=== PATIENT | female | born 1975 | race Caucasian/White ===

== ENCOUNTER → 2016-07-14 | Outpatient (CLI) | payer MEDICARE ==
--- NOTE | 2016-07-17 08:27 | REP ---
MRA SPINE WITHOUT CONTRAST: HISTORY: Occipital neuralgia. A 2D phase contrast CSF flow study was performed with a velocity encoding of 10 cm/s. CSF flow is present in the prepontine and medullary cisterns, aqueduct of Sylvius and outlet foramina. CSF flow is present in the subarachnoid space posterior to the cerebellar tonsils and anterior and posterior subarachnoid space at the cervicomedullary junction. The CSF flow appears normal. IMPRESSION: CSF flow study as described above. Signed by Ramiro Garcia MD 07/17/2016 08:31 A
== END ==
LOC: M RAD 15:37
PROVIDERS: ATTEND Neurological Surgery
DX: M54.81 Occipital neuralgia (principal); G93.5 Compression of brain

== ENCOUNTER → 2017-02-05 | Outpatient (REF) | payer MEDICARE ==
[2017-02-05 17:09] LABS: BASO % 0.9 % (0.0-1.0); EOS % 0.9 % (0.0-3.0); LARGE UNSTAINED CELL # 0.1 K/mm3 (0.0-0.4); LARGE UNSTAINED CELL % 2.1 % (0.0-4.0); LYMPH # 1.7 K/mm3 (1.5-4.5); LYMPH % 31.2 % (24.0-44.0); MEAN CORPUSCULAR HEMOGLOBIN 30.5 pg (27.0-33.0); MEAN CORPUSCULAR HGB CONC 32.5 g/dl (32.0-36.5); MEAN CORPUSCULAR VOLUME 93.8 fl (80.0-96.0); MONO # 0.3 K/mm3 (0.0-0.8); MONO % 4.8 % (0.0-5.0); NEUTROPHILS # 3.1 K/mm3 (1.8-7.7); NEUTROPHILS % 60.1 % (36.0-66.0); PLATELET COUNT, AUTOMATED 313 k/mm3 (150-450); RED CELL DISTRIBUTION WIDTH 12.7 % (11.5-14.5); WHITE BLOOD COUNT 5.2 K/mm3 (4.0-10.0)
[2017-02-05 17:10] LABS: ALBUMIN 3.9 GM/DL (3.2-5.2); ALBUMIN/GLOBULIN RATIO 1.26 (1.00-1.93); ALKALINE PHOSPHATASE 79 U/L (45-117); ALT/SGPT 28 U/L (12-78); ANION GAP 10 MEQ/L (8-16); AST/SGOT 17 U/L (15-37); BILIRUBIN,TOTAL 0.3 MG/DL (0.2-1.0); BLOOD UREA NITROGEN 17 MG/DL (7-18); CALCIUM LEVEL 8.3 MG/DL (8.5-10.1); CARBON DIOXIDE LEVEL 19 MEQ/L (21-32); CHLORIDE LEVEL 112 MEQ/L (98-107); CREATININE FOR GFR 0.79 MG/DL (0.55-1.02); GLOMERULAR FILTRATION RATE > 60.0 (>58); GLUCOSE, FASTING 105 MG/DL (70-105); POTASSIUM SERUM 4.1 MEQ/L (3.5-5.1); SODIUM LEVEL 141 MEQ/L (136-145)
[2017-02-05 20:54] LABS: ERYTHROCYTE SEDIMENTATION RATE 10 mm/hr (0-20)
== END ==
LOC: M LABNEURO 15:10
PROVIDERS: ATTEND Psychiatry & Neurology Neurology
DX: G89.29 Other chronic pain (principal); M54.5 Low back pain; M54.2 Cervicalgia

== ENCOUNTER 2017-06-04 20:00 | Emergency (ER) | payer MEDICARE ==
[~2017-06-04] VITALS: Ht 172.7 cm; Wt 75.0 kg
[2017-06-04] MEDS ORDERED: PREG50CA PO (20:10)
[2017-06-04] MEDS ORDERED: SUMA6INJ16 (20:10)
[2017-06-04] MEDS ORDERED: DULO1CAP3 (20:10)
[2017-06-04] MEDS ORDERED: SERT-138 (20:10)
[2017-06-04] MEDS ORDERED: PROP60CA (20:10)
[2017-06-04] MEDS ORDERED: MORPHINE 4 MG/ML 1ML SYRINGE IV ONE ×2 (20:45→21:00)
[2017-06-04 21:18] LABS: BASO # 0.1 10^3/uL (0.0-0.2); BASO % 0.8 % (0.0-1.0); EOS # 0.1 10^3/uL (0.0-0.50); EOS % 1.5 % (0.0-3.0); IMMATURE GRANULOCYTE % 0.4 % (0-0); LYMPH # 2.1 10^3/uL (1.5-4.5); LYMPH % 21.8 % (24.0-44.0); MEAN CORPUSCULAR HEMOGLOBIN 30.7 pg (27.0-33.0); MEAN CORPUSCULAR HGB CONC 32.5 g/dl (32.0-36.5); MEAN CORPUSCULAR VOLUME 94.3 fl (80.0-96.0); MONO # 0.7 10^3/uL (0.0-0.8); MONO % 7.5 % (0.0-5.0); NEUTROPHILS # 6.5 10^3/uL (1.8-7.7); PLATELET COUNT, AUTOMATED 376 10^3/uL (150-450); RED CELL DISTRIBUTION WIDTH 12.8 % (11.5-14.5); WHITE BLOOD COUNT 9.5 10^3/uL (4.0-10.0)
[2017-06-04 21:35] LABS: INR 0.95
[2017-06-04 21:37] LABS: ANION GAP 6 MEQ/L (8-16); BLOOD UREA NITROGEN 24 MG/DL (7-18); CALCIUM LEVEL 8.9 MG/DL (8.5-10.1); CARBON DIOXIDE LEVEL 27 MEQ/L (21-32); CHLORIDE LEVEL 103 MEQ/L (98-107); GLOMERULAR FILTRATION RATE > 60.0 (>58); GLUCOSE, FASTING 89 MG/DL (70-105); SODIUM LEVEL 136 MEQ/L (136-145)
[2017-06-04] MEDS ORDERED: PROPOFOL 200 MG/20 ML VIAL As Ordered ONE (22:45)
[2017-06-04 23:12] VITALS: O2SAT 98
[2017-06-05] MEDS ORDERED: NORCO 5/325MG TABLET (BULK FOR ED) PO ONE (00:15)
[2017-06-05] MEDS ORDERED: MORPHINE 4 MG/ML 1ML SYRINGE IV ONE (00:15)
[2017-06-05] MEDS ORDERED: PROPOFOL 200 MG/20 ML VIAL IV ONE (00:45)
[2017-06-05 03:03] VITALS: BP 122/75
--- NOTE | 2017-06-05 07:38 | REP ---
Right tibia-fibula four views: There is a fracture at the base of the medial malleolus and medial subluxation of the distal tibia and a fracture of the distal fibula. Signed by Tl Zepeda MD 06/05/2017 07:30 A
--- NOTE | 2017-06-05 07:39 | REP ---
Right ankle five views: There is a trimalleolar fracture with anteromedial subluxation of the distal tibia. Signed by Tl Zepeda MD 06/05/2017 07:31 A
--- NOTE | 2017-06-05 07:41 | REP ---
Chest, single AP view, the patient supine: There are no comparisons. The lung dempsey are clear. Cardiac size is normal. The yamilet, mediastinum, and bony thorax are unremarkable. Impression: Negative supine AP chest. Signed by Tl Zepeda MD 06/05/2017 07:32 A
--- NOTE | 2017-06-05 07:44 | REP ---
Right ankle portable study to views post reduction: The trimalleolar fracture has been satisfactorily reduced except that there is diastases of the distal fibular fracture on the lateral view. The subluxation of the distal tibia has been satisfactorily reduced. Signed by Tl Zepeda MD 06/05/2017 07:35 A
== END 2017-06-05 01:36 | disposition home or self-care (01) ==
LOC: M ED 20:00
DX: S82.851A Displaced trimalleolar fracture of right lower leg, initial encounter for closed fracture (principal); X50.1XXA Overexertion from prolonged static or awkward postures, initial encounter; Y92.410 Unspecified street and highway as the place of occurrence of the external cause; Y93.89 Activity, other specified; Y99.9 Unspecified external cause status; F32.9 Major depressive disorder, single episode, unspecified; G43.909 Migraine, unspecified, not intractable, without status migrainosus; Z79.899 Other long term (current) drug therapy; Z88.1 Allergy status to other antibiotic agents; Z88.5 Allergy status to narcotic agent; Z91.018 Allergy to other foods

== ENCOUNTER → 2017-10-23 | Outpatient (CLI) | payer MEDICARE, MEDICAID | LOC: M RAD 08:11 | DX: M51.36 Other intervertebral disc degeneration, lumbar region (principal) | CPT/HCPCS: 72131 ==

== ENCOUNTER 2017-12-22 19:36 | Emergency (ER) | payer BC, MEDICARE ==
[2017-12-22] MEDS: KETOROLAC 30 MG/ML VIAL (J1885) IV (21:15)
[2017-12-22] MEDS: ONDANSETRON 4MG/2ML VIAL (J2405) IV (21:15)
[2017-12-22] MEDS: NS 1,000 ML IV (21:15)
[2017-12-22 21:37] LABS: KETONE, URINE AUTO RFX NEGATIVE (NEGATIVE); LEUKOCYTE ESTERASE UR AUTO RFX NEGATIVE (NEGATIVE); MUCUS, URINE RFX SMALL (NEGATIVE); NITRITE, URINE AUTO RFX NEGATIVE (NEGATIVE); RBC, URINE AUTO RFX 12 /HPF (0-3); SPECIFIC GRAVITY UR AUTO RFX 1.019 (1.002-1.035); SQUAM EPITHELIAL CELL UR AURFX 1 /HPF (0-6); WBC, URINE AUTO RFX 1 /HPF (0-3)
[2017-12-22 21:40] LABS: BASO # 0.1 10^3/uL (0.0-0.2); BASO % 0.7 % (0.0-1.0); EOS # 0.1 10^3/uL (0.0-0.50); HEMATOCRIT 37.2 % (36.0-47.0); HEMOGLOBIN 12.1 g/dl (12.0-15.5); IMMATURE GRANULOCYTE % 0.3 % (0-3.0); LYMPH # 2.6 10^3/uL (1.5-4.5); LYMPH % 35.5 % (24.0-44.0); MEAN CORPUSCULAR HEMOGLOBIN 27.2 pg (27.0-33.0); MEAN CORPUSCULAR HGB CONC 32.5 g/dl (32.0-36.5); MEAN CORPUSCULAR VOLUME 83.6 fl (80.0-96.0); MONO # 0.5 10^3/uL (0.0-0.8); MONO % 7.5 % (0.0-5.0); PLATELET COUNT, AUTOMATED 379 10^3/uL (150-450); RED BLOOD COUNT 4.45 10^6/uL (4.00-5.40); RED CELL DISTRIBUTION WIDTH 13.6 % (11.5-14.5); WHITE BLOOD COUNT 7.2 10^3/uL (4.0-10.0)
[2017-12-22 22:10] LABS: ALBUMIN/GLOBULIN RATIO 1.11 (1.00-1.93); ALKALINE PHOSPHATASE 108 U/L (45-117); ALT/SGPT 21 U/L (12-78); AMYLASE 25 U/L (25-115); ANION GAP 8 MEQ/L (8-16); AST/SGOT 11 U/L (7-37); BILIRUBIN,DIRECT 0.1 MG/DL (0.0-0.2); BILIRUBIN,TOTAL 0.4 MG/DL (0.2-1.0); BLOOD UREA NITROGEN 18 MG/DL (7-18); CALCIUM LEVEL 8.6 MG/DL (8.5-10.1); CARBON DIOXIDE LEVEL 26 MEQ/L (21-32); CHLORIDE LEVEL 107 MEQ/L (98-107); CREATININE FOR GFR 0.81 MG/DL (0.55-1.30); GLOMERULAR FILTRATION RATE > 60.0 (>58); GLUCOSE, FASTING 84 MG/DL (70-100); LIPASE 169 U/L (73-393); POTASSIUM SERUM 3.7 MEQ/L (3.5-5.1); SODIUM LEVEL 141 MEQ/L (136-145); TOTAL PROTEIN 7.6 GM/DL (6.4-8.2)
[2017-12-22] MEDS ORDERED: ISOVUE-370 76% 100ML VIAL (Q9967) As Ordered (22:17)
== END 2017-12-22 23:55 | disposition home or self-care (01) ==
LOC: M ED 19:36
DX: R10.11 Right upper quadrant pain (principal); R10.31 Right lower quadrant pain; R11.0 Nausea; K42.9 Umbilical hernia without obstruction or gangrene; K44.9 Diaphragmatic hernia without obstruction or gangrene; Z79.899 Other long term (current) drug therapy; Z88.1 Allergy status to other antibiotic agents; Z88.5 Allergy status to narcotic agent; Z91.018 Allergy to other foods
CPT/HCPCS: J2405

== ENCOUNTER → 2019-04-15 | Outpatient (REF) | payer BC, MEDICARE ==
[~2019-04-15] MED LIST: DULO1CAP6; IBUP80TA PO; OMEP-358 PO; PREG50CA PO; PROP60CA; SERT-138; SUMA6INJ16; SUMA6KIT SC; ZOFR4TAB14 PO
[2019-04-15 18:15] LABS: AMORPHOUS SEDIMENT SMALL (NEGATIVE); APPEARANCE, URINE HAZY (CLEAR); BACTERIA, URINE AUTO NEGATIVE (NEGATIVE); BILIRUBIN, URINE AUTO NEGATIVE (NEGATIVE); BLOOD, URINE BLOOD 2+ (NEGATIVE); COLOR, URINE YELLOW (YELLOW); GLUCOSE, URINE (UA) AUTO NEGATIVE (NEGATIVE); KETONE, URINE AUTO NEGATIVE (NEGATIVE); LEUKOCYTE ESTERASE, URINE AUTO NEGATIVE (NEGATIVE); NITRITE, URINE AUTO NEGATIVE (NEGATIVE); PROTEIN, URINE AUTO NEGATIVE (NEGATIVE); RBC, URINE AUTO 6 /HPF (0-3); SPECIFIC GRAVITY URINE AUTO 1.008 (1.002-1.035); SQUAMOUS EPITHELIAL CELL UR AU 0 /HPF (0-6); UROBILINOGEN, URINE AUTO 0.2 mg/dL (0.0-2.0); WBC, URINE AUTO 1 /HPF (0-3)
== END ==
LOC: M LAB REF 16:51
PROVIDERS: ATTEND Obstetrics & Gynecology
DX: N32.81 Overactive bladder (principal); N39.41 Urge incontinence; R35.1 Nocturia

== ENCOUNTER → 2020-08-27 | Outpatient (REF) | payer MEDICARE ==
[2020-08-27 17:25] LABS: APPEARANCE, URINE HAZY (CLEAR); BACTERIA, URINE AUTO 1+ (NEGATIVE); BILIRUBIN, URINE AUTO NEGATIVE (NEGATIVE); BLOOD, URINE BLOOD 2+ (NEGATIVE); COLOR, URINE YELLOW (YELLOW); GLUCOSE, URINE (UA) AUTO NEGATIVE (NEGATIVE); KETONE, URINE AUTO NEGATIVE (NEGATIVE); LEUKOCYTE ESTERASE, URINE AUTO 1+ (NEGATIVE); MUCUS, URINE SMALL (NEGATIVE); NITRITE, URINE AUTO NEGATIVE (NEGATIVE); PROTEIN, URINE AUTO 1+ mg/dL (NEGATIVE); RBC, URINE AUTO 12 /HPF (0-3); SPECIFIC GRAVITY URINE AUTO 1.018 (1.002-1.035); SQUAMOUS EPITHELIAL CELL UR AU 0 /HPF (0-6); UROBILINOGEN, URINE AUTO 0.2 mg/dL (0.0-2.0); WBC, URINE AUTO 51 /HPF (0-3)
== END ==
LOC: M LAB REF 16:59
PROVIDERS: ATTEND Obstetrics & Gynecology
DX: N39.0 Urinary tract infection, site not specified (principal)

== ENCOUNTER → 2020-09-28 | Outpatient (REF) | payer MEDICARE ==
[2020-09-28 17:09] LABS: APPEARANCE, URINE CLEAR (CLEAR); BACTERIA, URINE AUTO 1+ (NEGATIVE); BILIRUBIN, URINE AUTO NEGATIVE (NEGATIVE); BLOOD, URINE BLOOD 1+ (NEGATIVE); COLOR, URINE YELLOW (YELLOW); GLUCOSE, URINE (UA) AUTO NEGATIVE (NEGATIVE); KETONE, URINE AUTO NEGATIVE (NEGATIVE); LEUKOCYTE ESTERASE, URINE AUTO TRACE (NEGATIVE); NITRITE, URINE AUTO NEGATIVE (NEGATIVE); PROTEIN, URINE AUTO NEGATIVE (NEGATIVE); RBC, URINE AUTO 5 /HPF (0-3); SPECIFIC GRAVITY URINE AUTO 1.011 (1.002-1.035); SQUAMOUS EPITHELIAL CELL UR AU 2 /HPF (0-6); UROBILINOGEN, URINE AUTO 0.2 mg/dL (0.0-2.0); WBC, URINE AUTO 6 /HPF (0-3)
== END ==
LOC: M LAB REF 15:57
PROVIDERS: ATTEND Obstetrics & Gynecology
DX: N39.0 Urinary tract infection, site not specified (principal)

== ENCOUNTER → 2020-12-20 | Outpatient (REF) | payer MEDICARE ==
[2020-12-20 18:23] LABS: TOTAL T3 89.6 NG/DL (60.0-181.0)
== END ==
LOC: M LAB REF 16:57
PROVIDERS: ATTEND Nurse Practitioner Adult Health
DX: A69.20 Lyme disease, unspecified (principal); D51.1 Vitamin B12 deficiency anemia due to selective vitamin B12 malabsorption with proteinuria; E03.9 Hypothyroidism, unspecified

== ENCOUNTER → 2021-02-14 | Outpatient (CLI) | payer MEDICARE ==
--- NOTE | 2021-02-14 09:15 | REP ---
INDICATION: SCREENING MAMMO. COMPARISON: Multiple TECHNIQUE: Digital screening mammography was carried out bilaterally in the CC and MLO projections using both 2D and 3D modalities and compared to the prior exams. By history, the patient has no complaints of a palpable breast abnormality or other significant breast complaints. There are no prior DBT images to review. FINDINGS: The breasts are unchanged in size and shape. Once again, dense heterogenous somewhat nodular fibroglandular elements are seen bilaterally to such a degree that the sensitivity of the mammogram in detecting cancer is decreased. In the upper outer quadrant of the right breast there is a potential madalyn asymmetric density. No other suspicious features are seen in either breast. There are no suspicious calcifications. There is no skin thickening or nipple retraction. The Volpara volumetric breast density pattern is C. IMPRESSION: BIRADS/ACR category 0 mammogram. There is a potential madalyn density seen in the right breast upper outer quadrant for which diagnostic digital DBT spot compression views are recommended in the CC and MLO projections. Diagnostic ultrasonography may also be indicated. This patient's Tyrer-Cuzick lifetime breast cancer risk assessment score is 8.5%. This mammogram was interpreted with the aid of an FDA-approved computer-aided detection system. The patient states she had a clinical breast exam in over a year. The patient letter being requested is M0. RECOMMENDATION: As above <Electronically signed by Sumeet Santos > 02/14/21 0917
--- NOTE | 2021-02-14 09:21 | REP ---
INDICATION: Dense breasts COMPARISON: None TECHNIQUE: Bilateral whole breast screening ultrasonography was obtained using anatomical intelligence and shear wave elastography if necessary FINDINGS: There are no cystic or solid masses seen in either breast. IMPRESSION: ACR category 2 benign exam <Electronically signed by Sumeet Santos > 02/14/21 0918
== END ==
LOC: M WHC 08:10
PROVIDERS: ATTEND Nurse Practitioner Adult Health
DX: Z12.31 Encounter for screening mammogram for malignant neoplasm of breast (principal)

== ENCOUNTER → 2021-04-18 | Outpatient (CLI) | payer MEDICARE ==
--- NOTE | 2021-04-18 14:58 | REP ---
INDICATION: RIGHT BREAST ADD VIEWS. COMPARISON: 02/14/2021, 03/11/2012. TECHNIQUE: Spot compression magnification tomographic sequences are obtained in the MLO and CC projections. FINDINGS: No persistent nodular density is seen in the upper outer quadrant of right breast, as suspected on the mammogram of 02/14/2021. IMPRESSION: BIRADS/ACR category 1, negative. No persistent nodule or other abnormality on today's additional views of the upper-outer quadrant of the right breast. This mammogram was interpreted with the aid of an FDA-approved computer-aided detection system. The patient letter being requested is M 1. RECOMMENDATION: Repeat screening mammography recommended 1 year (for women over 40). <Electronically signed by Tl Nunez > 04/18/21 [id number]
== END ==
LOC: M WHC 14:05
PROVIDERS: ATTEND Nurse Practitioner Adult Health
DX: R92.2 Inconclusive mammogram (principal)
CPT/HCPCS: 77065; G0279

== ENCOUNTER → 2021-07-25 | Outpatient (REF) | payer MEDICARE ==
[~2021-07-25] MED LIST changes: +SUMA6CAR SC; -SUMA6INJ16; +SUMA6INJ25; -SUMA6KIT SC
== END ==
LOC: M LAB REF 16:22
PROVIDERS: ATTEND Nurse Practitioner Adult Health
DX: R10.9 Unspecified abdominal pain (principal)

== ENCOUNTER → 2021-07-28 | Outpatient (CLI) | payer MEDICARE | LOC: M RAD 07:55 | PROVIDERS: ATTEND Nurse Practitioner Adult Health | DX: R10.11 Right upper quadrant pain (principal) ==

== ENCOUNTER → 2023-09-12 | Outpatient (REF) | payer MEDICARE ==
[2023-09-12 15:03] LABS: LUTEINIZING HORMONE 57.3 mIU/ML
[2023-09-12 15:04] LABS: FOLLICLE STIMULATING HORMONE 114.3 mIU/ML
[2023-09-12 15:06] LABS: FREE T3 3.3 PG/ML (2.3-4.2)
[2023-09-12 15:26] LABS: THYROID PEROXIDASE ANTIBODY > 1300.0 U/ML (<60.0)
== END ==
LOC: M LAB REF 13:38
PROVIDERS: ATTEND Nurse Practitioner Adult Health
DX: E03.9 Hypothyroidism, unspecified (principal); N91.0 Primary amenorrhea

== ENCOUNTER → 2023-10-30 | Outpatient (REF) | payer MEDICARE ==
[2023-10-30 17:18] LABS: C REACTIVE PROTEIN QUANTITATIV < 0.40 MG/DL (<1.0)
[2023-10-30 17:24] LABS: IMMUNOGLOBULIN A 204.3 MG/DL (40-350)
[2023-10-30 17:25] LABS: RHEUMATOID FACTOR QUANT 8.7 IU/ML (<14)
[2023-10-30 17:39] LABS: URIC ACID 5.2 MG/DL (3.1-7.8)
== END ==
LOC: M LAB REF 16:39
PROVIDERS: ATTEND Internal Medicine
DX: M13.80 Other specified arthritis, unspecified site (principal)

== ENCOUNTER → 2023-11-29 | Outpatient (REF) | payer MEDICARE ==
[~2023-11-29] MED LIST changes: -SUMA6INJ25; +SUMA6PEN3
== END ==
LOC: M LAB REF 13:21
PROVIDERS: ATTEND Internal Medicine
DX: N15.9 Renal tubulo-interstitial disease, unspecified (principal)

== ENCOUNTER → 2024-01-29 | Outpatient (CLI) | payer MEDICARE | LOC: M WUC 11:55 | PROVIDERS: ATTEND Internal Medicine | DX: M25.551 Pain in right hip (principal) ==

== ENCOUNTER → 2024-03-31 | Outpatient (REF) | payer MEDICARE ==
[2024-03-31 17:39] LABS: FERRITIN 64.6 NG/ML (7.3-270.7)
[2024-03-31 17:50] LABS: PERCENT SATURATION 22.2 % (13.2-45.0)
== END ==
LOC: M LAB REF 16:46
PROVIDERS: ATTEND Internal Medicine
DX: D64.9 Anemia, unspecified (principal)

== ENCOUNTER → 2025-01-20 | Outpatient (REF) | payer MEDICARE, MEDICAID ==
[~2025-01-20] MED LIST changes: -PREG50CA PO; +PREG50CA87 PO; -SUMA6PEN3; +SUMA6PEN5
[2025-01-20 14:34] LABS: THYROXINE (T4) 6.3 UG/DL (4.5-10.9); TOTAL T3 110.5 NG/DL (60.0-181.0)
[2025-01-20 14:35] LABS: VITAMIN B12 LEVEL 760.0 PG/ML (211-911)
== END ==
LOC: M LAB REF 13:30
PROVIDERS: ATTEND Internal Medicine
DX: D64.9 Anemia, unspecified (principal); Z83.49 Family history of other endocrine, nutritional and metabolic diseases; N91.2 Amenorrhea, unspecified; E06.3 Autoimmune thyroiditis

== ENCOUNTER → 2025-04-21 | Outpatient (REF) | payer MEDICARE, MEDICAID ==
[2025-04-21 15:20] LABS: ATYPICAL LYMPH 1 % (0-5); BASOPHILS 1 % (0-1); EOSINOPHILS 2 % (0-3); LYMPHOCYTES 71 % (16-44); MONOCYTES 7 % (0-5); NEUTROPHILS 18 % (28-66)
[2025-04-21 15:21] LABS: PLATELET ESTIMATE NORMAL (NORMAL)
== END ==
LOC: M LAB REF 14:28
PROVIDERS: ATTEND Internal Medicine
DX: D72.820 Lymphocytosis (symptomatic) (principal)

== ENCOUNTER → 2025-05-19 | Outpatient (REF) | payer MEDICARE, MEDICAID ==
[2025-05-19 18:03] LABS: IRON (FE) 57.0 UG/DL (50-170); PERCENT SATURATION 18.0 % (13.2-45.0)
== END ==
LOC: M LAB REF 17:25
PROVIDERS: ATTEND Internal Medicine
DX: D64.9 Anemia, unspecified (principal); E83.51 Hypocalcemia

== ENCOUNTER → 2025-05-22 | Outpatient (CLI) | payer MEDICARE, MEDICAID | LOC: M RAD 07:47 | PROVIDERS: ATTEND Internal Medicine | DX: R93.429 Abnormal radiologic findings on diagnostic imaging of unspecified kidney (principal) ==

== ENCOUNTER → 2025-06-24 | Outpatient (CLI) | payer MEDICARE, MEDICAID ==
[~2025-06-24] MED LIST changes: +PROHANCE 279.3MG/ML 15ML VIAL ONE
== END ==
LOC: M PLAIMG 09:48
PROVIDERS: ATTEND Internal Medicine
DX: R93.7 Abnormal findings on diagnostic imaging of other parts of musculoskeletal system (principal); D18.09 Hemangioma of other sites
CPT/HCPCS: 72157; A9579